=== PATIENT | male | born 1975 | race Caucasian/White ===

== ENCOUNTER 2016-10-07 19:20 | Emergency (ER) | payer MEDICAID, OTHER ==
[~2016-10-07] VITALS: Ht 167.6 cm; Wt 96.5 kg
[2016-10-07 20:08] VITALS: Ht 167.6 cm; Wt 96.5 kg
--- NOTE | 2016-10-07 20:27 | EN ---
Date/Time of Note Date/Time of Note DATE: 10/07/16 TIME: 20:26 ER Progress Note Rapid medical evaluation note: 41 year old male comes in with left upper posterior arm pain which she sustained as an injury when he lifted about 50 pounds on Tuesday. There is tenderness when I palpate, no pain with movement, I explained to him this is a muscular contusion, he would like to get further evaluation with x-rays and will wait to be seen in emergency 2. LEILA STARKEY PA-C Oct 07, 2016 20:27
[2016-10-07] MEDS ORDERED: IBUPROFEN 600 MG TAB PO ONE (21:30)
--- NOTE | 2016-10-07 22:09 | RADRPT ---
PROCEDURE: XR left Shoulder. CLINICAL INDICATION: Trauma. Pain. TECHNIQUE: Three views of the left shoulder are available for review. COMPARISON: None available FINDINGS: No acute fracture or dislocation is seen. The glenohumeral joint is unremarkable. The acromioclavi cular joint is intact. The visualized portions of the left clavicle and upper left rib cage are unr emarkable. No radiopaque foreign body is identified. Bone mineralization is within normal limits. Soft tissues are unremarkable. IMPRESSION: 1. Unremarkable left shoulder x-ray series. 2. No acute fracture or dislocation is seen. RPTAT: HMVK .Edgardo Anderson MD, Date Time Electronically viewed and signed by .Edgardo Anderson MD, on 10/07/2016 22:09 .K/
--- NOTE | 2016-10-07 22:09 | RADRPT ---
PROCEDURE: XR humerus. CLINICAL INDICATION: Trauma TECHNIQUE: Two views of the left humerus were performed. COMPARISON: There are no similar studies submitted for comparison. FINDINGS: There is normal bone mineralization.There is no acute fracture or dislocation.No osseous lesion is i dentified. There is no soft tissue swelling. IMPRESSION: No acute fracture or dislocation. RPTAT: HIKT .Everardo Edmonds MD, MD Date Time Electronically viewed and signed by .Everardo Edmonds MD, on 10/07/2016 22:09 .T/
--- NOTE | 2016-10-07 22:12 | RADRPT ---
PROCEDURE: XR Left Wrist. CLINICAL INDICATION: Trauma. Pain. TECHNIQUE: AP, lateral and oblique views of the left wrist were performed. COMPARISON: No prior studies are available for comparison. FINDINGS: No acute fracture is identified. Joint relationships are maintained. Bone mineralization is within normal limits. Soft tissues are unremarkable. IMPRESSION: 1. No acute abnormality. RPTAT: HMVK .Edgardo Anderson MD, Date Time Electronically viewed and signed by .Edgardo Anderson MD, on 10/07/2016 22:12 .K/
--- NOTE | 2016-10-07 22:13 | RADRPT ---
PROCEDURE: XR Forearm. CLINICAL INDICATION: Injury. Pain. TECHNIQUE: AP and lateral views of the left forearm were obtained. COMPARISON: No prior studies are available for comparison. FINDINGS: There is normal mineralization and alignment. No fracture or osseous lesion is identified. There are normal joints without evidence of arthritis or effusion. The soft tissues are unremarkable. IMPRESSION: 1. Unremarkable left forearm x-ray series. RPTAT: HMVK .Edgardo Anderson MD, MD Date Time Electronically viewed and signed by .Edgardo Anderosn MD, MD on 10/07/2016 22:12 .K/
[2016-10-07] MEDS ORDERED: IBUP-1542 PO (22:48)
--- NOTE | 2016-10-07 22:54 | ERD ---
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 Patient states that since then he is experiencing pain over his left upper arm which radiates down into his forearm and wrist. Patient is also complaining of left hand swelling. He denies any fevers or chills. He denies any numbness or tingling of his left extremity. ROS 12 point review of systems was done, all negative except per HPI. Medications Home Meds Active Scripts Ibuprofen* (Motrin*) 600 Mg Tab, 600 MG PO Q6, #30 TAB Prov:ANISA GUNN Suhail 10/07/16 Allergies Allergies: Coded Allergies: No Known Allergy (Unverified , 10/07/16) PMhx/Soc Medical and Surgical Hx: pt denies Medical Hx, pt denies Surgical Hx Hx Alcohol Use: No Hx Substance Use: No Hx Tobacco Use: No Smoking Status: Never smoker Physical Exam Vitals Vital Signs Date Time Temp Pulse Resp B/P Pulse Ox O2 Delivery O2 Flow Rate FiO2 10/07/16 20:08 97.8 67 20 137/75 99 Physical Exam GENERAL: The patient is well developed and appropriate for usual state of health , in no apparent distress. HEENT: Atraumatic. CHEST: Clear to auscultation bilaterally. There are no rales, wheezes or rhonchi. HEART: Regular rate and rhythm. No murmurs, clicks, rubs or gallops. EXTREMITIES: Left shoulder: Patient has full range of motion of his left shoulder he is nontender to palpation over the shoulder joint. Patient is tender to palpation over the bicep muscle. He has full range of motion of his elbow. Patient is not tender to palpation over his forearm. Patient is tender to palpation over radial ulnar styloids of the left wrist. He has full range of motion of his wrist. No snuffbox tenderness. Patient is able to move all fingers without difficulty radial ulnar medial nerves are intact. Normal capillary refill. NEURO: Alert and oriented. SKIN: The skin is warm and dry. Results 24 hrs Current Medications Medications (Trade) Dose Ordered Sig/Susie Route PRN Reason Start Time Stop Time Status Last Admin Dose Admin Ibuprofen (Motrin) 600 mg ONCE ONCE PO 10/07/16 21:30 10/07/16 21:31 DC 10/07/16 21:07 Procedures/MDM This is a 41 y.o male that presents to the ER with upper extremity pain after an accident at work. At this time there is no evidence of fractures or dislocations. Patient has full range of motion of his upper extremity is neurovascularly intact. Patient will be sent home with ibuprofen. He needs to follow-up with his primary care doctor within 1-2 days or return to ER sooner if symptoms worsen. My medical decision making was shared with the patient he understands and agrees with plan. Departure Diagnosis: Primary Impression: Injury of upper extremity Condition: Stable Patient Instructions: Contusion, Upper Extremity Additional Instructions: Call your primary care doctor TOMORROW for an appointment during the next 1-2 days.See the doctor sooner or return here if your condition worsens before your appointment time. ANISA GUNN Oct 07, 2016 22:54
[2016-10-07 23:07] VITALS: BP 106/76; PULSE 64; RESP 20; TEMP 98.6
== END 2016-10-07 23:15 | disposition home or self-care (01) ==
LOC: FTE 19:20
DX: S49.92XA Unspecified injury of left shoulder and upper arm, initial encounter (principal); W22.8XXA Striking against or struck by other objects, initial encounter; Y92.89 Other specified places as the place of occurrence of the external cause
CPT/HCPCS: 73030; 73060; 73090; 73110; Z7610